=== PATIENT | female | born 1945 | race Caucasian/White ===

== ENCOUNTER 2017-07-20 07:09 | Inpatient (IN) | payer OTHER ==
[2017-07-20] MEDS ORDERED: DEXAMETHASONE SOD PHOSPHATE/PF 10 MG/ML SDV ONE ×2 (07:38→07:56)
[2017-07-20] MEDS ORDERED: VANCOMYCIN 1,000 MG VIAL (RESTRICTED TO ID ONLY) ONE ×2 (07:39→08:08)
[2017-07-20] MEDS ORDERED: ROPIVICAINE 0.2%/MORPH PF/KETOROLAC - 51ML DISP.SYRINGE IA ONE ×3 (07:42→12:00)
[2017-07-20 07:51] VITALS: BMI 26.6
[2017-07-20] MEDS ORDERED: MIDAZOLAM HCL 2 MG/2 ML SINGLE DOSE VIAL ONE ×3 (07:56→08:01)
[2017-07-20] MEDS ORDERED: ROPIVACAINE HCL 0.5% 30ML VIAL ONE (07:57)
[2017-07-20] MEDS ORDERED: PROPOFOL 20 ML ONE ×3 (07:58→10:20)
[2017-07-20] MEDS ORDERED: LIDOCAINE HCL/PF 2% SDV 5ML VIAL ONE ×2 (07:58→10:34)
[2017-07-20] MEDS ORDERED: ONDANSETRON 4 MG/2 ML VIAL ONE ×2 (07:58→10:34)
[2017-07-20] MEDS ORDERED: DEXAMETHASONE SOD PHOSPHATE 4 MG/1 ML VIAL ONE ×2 (07:58→10:34)
[2017-07-20] MEDS ORDERED: TRANEXAMIC ACID 1000 MG/10 ML VIAL ONE ×2 (08:08→09:48)
--- NOTE | 2017-07-20 08:10 | HP ---
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: Alzheimer's, CVA, Dementia, Migraine, Multiple Sclerosis, Peripheral Neuropathy, Parkinson's, Seizure, Syncope, TIA, Vertigo, Other Cardiovascular: Yes: HTN Pulmonary: No: Asthma, Bronchitis, Cancer, COPD, O2 Dependent, Pneumonia, Previously Intubated, Pulmonary Embolus, Pulmonary Fibrosis, Sleep Apnea, Other Gastrointestinal: No: Ascites, Cancer, Constipation, Crohn's Disease, Diverticulitis, Diverticulosis, Esophageal Varices, Gastritis, GERD, GI Bleed, Hemorrhoids, Hiatal Hernia, Inflamatory Bowel Disease, Irritable Bowel Disease, Pancreatitis, Peptic Ulcer Disease, Ulcerative Colitis, Other Hepatobiliary: Yes: Other (hyperlipidemia) Reproductive: No: Ectopic , Endometriosis, Fibroids, PID, Polycystic Ovary Syndrome, Postmenopausal, Other ...: No Heme/Onc: No: Anemia, B12 Deficiency, Bleeding Disorder, Cancer, Current Chemotherapy, Current Radiation Therapy, Hemochromatosis, Hypercoaguable State, Myeloproliferative Synd, Sickle Cell Disease, Sickle Cell Trait, Thrombocytopenia, Other Infectious Disease: No: AIDS, C-Diff, Herpes Zoster, HIV, MRSA, STD's, Tuberculosis, VREF, Other Psych: No: Addictions, Anxiety, Bipolar, Depression, Panic, Psychosis, Schizophrenia, Other Musculoskeletal: Yes: Osteoarthritis (right hip) Rheumatology: No: Fibromyalgia, Gout, Lupus, Rheumatoid Arthritis, Sarcoidosis, Vasculitis, Other Endocrine: No: Arapahoe's Disease, Elicia's Disease, Diabetes Insipidus, Diabetes Mellitus, Hyperparathyroidism, Hyperthyroidism, Hypothyroidism, Osteopenia, SIADH, Other Dermatology: No: Basal Cell, Cellulitis, Eczema, Melanoma, Psoriasis, Squamous Cell, Other - Past Surgical History Past Surgical History: Yes: Cholecystectomy, Tubal Ligation - Advance Directives Advance Directives: Yes: Health Care Proxy - Smoking History Smoking history: Former smoker Have you smoked in the past 12 months: Yes Aproximately how many cigarettes per day: 3 If you are a former smoker, when did you quit?: 1 MONTH AGO - Alcohol/Substance Use Hx Alcohol Use: No - Social History Usual Living Arrangement: Yes: With Spouse Home Medications - Allergies Allergies/Adverse Reactions: Allergies Allergy/AdvReac Type Severity Reaction Status Date / Time No Known Drug Allergies Allergy Verified 07/14/17 13:38 - Home Medications Home Medications: Ambulatory Orders Atorvastatin Ca [Lipitor] 20 mg PO HS 07/14/17 Ferrous Sulfate [Feosol] 325 mg PO DAILY 07/14/17 Losartan Potassium 50 mg PO DAILY 07/14/17 Family Disease History - Family Disease History Family History: Unremarkable Review of Systems - Review of Systems Constitutional: reports: No Symptoms Eyes: reports: No Symptoms HENT: reports: No Symptoms Neck: reports: No Symptoms Cardiovascular: reports: No Symptoms Respiratory: reports: No Symptoms Gastrointestinal: reports: No Symptoms Genitourinary: reports: No Symptoms Breasts: reports: No Symptoms Reported Musculoskeletal: reports: Decreased ROM, Joint Pain Integumentary: reports: No Symptoms Neurological: reports: No Symptoms Hematology/Lymphatic: reports: No Symptoms Psychiatric: reports: No Symptoms Physical Examination Vital Signs: Vital Signs Temperature 97.9 F 07/20/17 07:40 Pulse Rate 72 07/20/17 07:40 Respiratory Rate 17 07/20/17 07:40 Blood Pressure 148/93 07/20/17 07:40 O2 Sat by Pulse Oximetry (%) Constitutional: Yes: Well Nourished Eyes: Yes: Conjunctiva Clear, EOM Intact Neck: Yes: Supple, Trachea Midline Cardiovascular: Yes: S1, S2 Respiratory: Yes: CTA Bilaterally Gastrointestinal: Yes: Soft, Abdomen, Obese ...Rectal Exam: Yes: Deferred Renal/: Yes: Other (n/a) Musculoskeletal: Yes: Joint Stiffness (decreased ROM and pain right hip) Extremities: Yes: Other (b/l LE compartments soft supple and non-tender) Edema: No Peripheral Pulses: Left Doralis Pedis: 2+, Right Dorsalis Pedis: 2+ Integumentary: Yes: WNL Wound/Incision: Yes: Other (N/A) Neurological: Yes: WNL, Alert, Oriented ...Motor Strength: WNL Psychiatric: Yes: WNL, Alert, Oriented Imaging - Results X-ray: Other Problem List - Problems (1) Osteoarthritis Assessment/Plan: Patient with right Hip OA will proceed with JAVIER as discussed in office with Dr Ramírez 1) continue current POC 2) follow up with pcp as directed 6 weeks post op Code(s): M19.90 - UNSPECIFIED OSTEOARTHRITIS, UNSPECIFIED SITE Visit type - Emergency Visit Emergency Visit: No - New Patient This patient is new to me today: Yes Date on this admission: 07/20/17 - Critical Care Critical Care patient: No Hospitalist Screening - Colonoscopy Questionnaire Colonoscopy Questionnaire: Colonoscopy Questionnaire - Patient: 50 - 75 years old and never had a screening colonoscopy: Yes History of colon or rectal polyps, or CA: No History of IBD, Crohn's disease or UC: No History of abdominal radiation therapy as a child: No - Relative: 1 with colon or rectal CA, or polyps at age 60 or younger: Unknown Colon or rectal CA diagnosed at age 45 or younger: Unknown Multiple relatives with colon or rectal CA: Unknown - Outcome: Screening Result: Positive Screen
[2017-07-20] MEDS ORDERED: ONDANSETRON 4 MG/2 ML VIAL IVPUSH PRN ×2 (08:56→12:29)
[2017-07-20] MEDS ORDERED: oxyCODONE HCL 5 MG TABLET PO PRN (08:56)
[2017-07-20] MEDS ORDERED: LACTATED RINGERS SOLUTION 1,000 ML IV SCH ×2 (09:00→12:30)
[2017-07-20] MEDS ORDERED: ACETAMINOPHEN 325 MG TABLET (FP) PO SCH (09:00)
[2017-07-20] MEDS ORDERED: CEFAZOLIN 1 GM/D5W 1 GRAM/50 ML BAG IVPB ONE (10:00)
[2017-07-20] MEDS ORDERED: VANCOMYCIN 1,000 MG in DEXTROSE 5%-WATER - 250 ML IVPB ONE (10:00)
[2017-07-20] MEDS ORDERED: TRANEXAMIC ACID 1000 MG/10 ML VIAL IVPUSH ONE (10:00)
[2017-07-20] MEDS ORDERED: ePHEDrine SULFATE 50 MG/1 ML AMPULE ONE (11:16)
[2017-07-20] MEDS ORDERED: ceFAZolin SODIUM 1 GM VIAL ONE (11:29)
[2017-07-20] MEDS ORDERED: BENZOIN/ALOE VERA/STORAX/TOLU 58 ML BOTTLE ONE (12:03)
[2017-07-20] MEDS ORDERED: MAGNESIUM HYDROX 2400MG/30ML ORAL SUSPENSION 30 ML CUP PO PRN (12:29)
--- NOTE | 2017-07-20 12:42 | PN ---
Progress Note (short form) - Note Progress Note: 71 yo s/p right total hip arthroplasty via direct superior approach POD #0 -Pain control. -DVT PPx: - Mechanical: SCD's, GEORGIANA's. - Chemical: ASA 81mg PO BID x 6 weeks. -Incentive spirometry. -PT/OT/Rehab, OOB. -WBAT RLE. -f/u AM labs. -f/u TOV. -Care per medical hospitalist team. -Discharge planning. -Will follow. Lili Hand surgery [facility]es[facility] Problem List - Problems (1) Osteoarthritis Code(s): M19.90 - UNSPECIFIED OSTEOARTHRITIS, UNSPECIFIED SITE
--- NOTE | 2017-07-20 12:49 | OP ---
Operative Note - Note: Operative Date: 07/20/17 Pre-Operative Diagnosis: Right hip OA Operation: Right JAVIER Post-Operative Diagnosis: Same as Pre-op Surgeon: Favio Ramírez Manager Market Research: Gabriel Ramírez (co surgeon) Anesthesiologist/HOSPICE OFFICE COORDINATOR: Clarence Perez Anesthesia: Spinal, Local Specimens Removed: right femoral head Estimated Blood Loss (mls): 100 Fluid Volume Replaced (mls): 1,500 Operative Report Dictated: Yes
--- NOTE | 2017-07-20 12:50 | SURG ---
Surgery Inspector Dials Note Inspector Dials: Lili Hand PA-C Date of Service: 07/20/17 Diagnosis: right hip OA Procedure: Right JAVIER I was present for the entirety of the operative procedure. For further detail, please refer to operative report. Visit type - Case Type Case Type: Scheduled Admission - Emergency Emergency Visit: No - New patient This patient is new to me today: Yes Date on this admission: 07/20/17
[2017-07-20] MEDS ORDERED: oxyCODONE HCL 5 MG TABLET ONE (13:24)
[2017-07-20] MEDS: oxyCODONE HCL 5 MG TABLET PO PRN ×2 (13:25→19:44)
[2017-07-20] MEDS: oxyCODONE HCL 10 MG SUSTAINED ACTING TABLET PO SCH ×2 (13:39→21:49)
[2017-07-20] MEDS: MAG HYDROX/AL HYDROX/SIMETH 30 ML UNIT-DOSE CUP PO PRN ×2 (15:54→19:45)
[2017-07-20] MEDS: CEFAZOLIN 1 GM/D5W 1 GRAM/50 ML BAG IVPB SCH (19:09)
[2017-07-20] MEDS: ACETAMINOPHEN 325 MG TABLET (FP) PO SCH (19:45)
[2017-07-20] MEDS: ATORVASTATIN CA 20 MG TABLET (FP) PO SCH (21:49)
[2017-07-20] MEDS: ASPIRIN 81 MG CHEWABLE TABLETS PO SCH (21:49)
[2017-07-20] MEDS: SENNOSIDES/DOCUSATE COMBO (SENNA PLUS) TABLET (UD) PO SCH (21:49)
[2017-07-21] MEDS ORDERED: VANCOMYCIN 1 GRAM (PRE-DOCKED) 1,000 MG/250 ML BAG IVPB ONE
[2017-07-21] MEDS: ACETAMINOPHEN 325 MG TABLET (FP) PO SCH ×4 (01:57→20:03)
[2017-07-21] MEDS: CEFAZOLIN 1 GM/D5W 1 GRAM/50 ML BAG IVPB SCH (02:49)
[2017-07-21 08:53] LABS: ANION GAP 7 (8-16); BLOOD UREA NITROGEN 15 mg/dl (7-18); CALCIUM 8.8 mg/dl (8.4-10.2); CHLORIDE 103 mmol/L (98-107); CO2 25 mmol/L (22-28); CREATININE 0.7 mg/dl (0.6-1.3); GLUCOSE,RANDOM 151 mg/dl (74-106); HEMATOCRIT 33.3 % (32.4-45.2); HEMOGLOBIN 11.2 GM/dl (10.7-15.3); MCH 28.3 pg (25.7-33.7); MCHC 33.5 g/dl (32.0-36.0); MEAN CELL VOLUME 84.3 fl (80-96); MEAN PLT VOLUME 8.7 fl (7.5-11.1); PLATELET COUNT 225 K/MM3 (134-434); POTASSIUM 4.1 mmol/L (3.5-5.1); RBC 3.95 M/mm3 (3.60-5.2); RDW 12.9 % (11.6-15.6); SODIUM 135 mmol/L (136-145); WHITE BLOOD COUNT 19.6 K/mm3 (4.0-10.8)
[2017-07-21] MEDS: FERROUS SO4 325 MG TABLET (FP) PO SCH (10:18)
[2017-07-21] MEDS: ASPIRIN 81 MG CHEWABLE TABLETS PO SCH ×2 (10:18→21:41)
[2017-07-21] MEDS: LOSARTAN POTASSIUM 50 MG TABLET (FP) PO SCH (10:19)
[2017-07-21] MEDS: SENNOSIDES/DOCUSATE COMBO (SENNA PLUS) TABLET (UD) PO SCH ×2 (10:19→21:41)
[2017-07-21] MEDS: oxyCODONE HCL 10 MG SUSTAINED ACTING TABLET PO SCH ×2 (10:19→21:42)
[2017-07-21] MEDS: PANTOPRAZOLE 40 MG TABLET (FP) PO SCH (10:23)
--- NOTE | 2017-07-21 12:38 | PN ---
Progress Note (short form) - Note Progress Note: 71F POD1 s/p R THR under spinal anesthetic with peripheral nerve blocks for post operative pain relief. Pt states that pain is well controlled and reports no anesthetic complications. AVSS. Sensory and motor function intact in bilateral lower extremities. Continue current regimen.
--- NOTE | 2017-07-21 16:48 | CONSULT ---
Consultation: REQUESTING PROVIDER: Dr Ramírez CONSULT REQUEST: We have been asked to medically evaluate this patient for medical management. HISTORY OF PRESENT ILLNESS: Patient is a 71 y/o female with a past medical history of osteomyelitis, hypertension, and hyperlipidemia, patient was admitted for an elective right total hip replacment, POD #1, Dr Ramírez REVIEW OF SYSTEMS: CONSTITUTIONAL: Absent: fever, chills, diaphoresis, generalized weakness, malaise, loss of appetite, weight change HEENT: Absent: rhinorrhea, nasal congestion, throat pain, throat swelling, difficulty swallowing, mouth swelling, ear pain, eye pain, visual changes CARDIOVASCULAR: Absent: chest pain, syncope, palpitations, irregular heart rate, lightheadedness , peripheral edema RESPIRATORY: Absent: cough, shortness of breath, dyspnea with exertion, orthopnea, wheezing, stridor, hemoptysis GASTROINTESTINAL: Absent: abdominal pain, abdominal distension, nausea, vomiting, diarrhea, constipation, melena, hematochezia GENITOURINARY: Absent: dysuria, frequency, urgency, hesitancy, hematuria, flank pain, genital pain MUSCULOSKELETAL: Present: right hip pain Absent: myalgia, arthralgia, joint swelling, back pain, neck pain SKIN: Absent: rash, itching, pallor HEMATOLOGIC/IMMUNOLOGIC: Absent: easy bleeding, easy bruising, lymphadenopathy, frequent infections ENDOCRINE: Absent: unexplained weight gain, unexplained weight loss, heat intolerance, cold intolerance NEUROLOGIC: Absent: headache, focal weakness or paresthesias, dizziness, unsteady gait, seizure, mental status changes, bladder or bowel incontinence PSYCHIATRIC: Absent: anxiety, depression, suicidal or homicidal ideation, hallucinations. PHYSICAL EXAMINATION Vital Signs - 24 hr 07/20/17 07/20/17 07/20/17 16:53 19:51 21:00 Temperature 98.3 F 97.9 F Pulse Rate 100 H 107 H Respiratory 16 16 16 Rate Blood Pressure 131/78 130/69 O2 Sat by Pulse 95 95 98 Oximetry (%) 07/21/17 07/21/17 06:36 14:00 Temperature 97.5 F L 98.2 F Pulse Rate 92 H 73 Respiratory 18 18 Rate Blood Pressure 124/63 90/59 O2 Sat by Pulse 96 94 L Oximetry (%) GENERAL: Awake, alert, and fully oriented, in no acute distress. HEAD: Normal with no signs of trauma. EYES: Pupils equal, round and reactive to light, extraocular movements intact, sclera anicteric, conjunctiva clear. No lid lag. EARS, NOSE, THROAT: Ears normal, nares patent, oropharynx clear without exudates. Moist mucous membranes. NECK: Normal range of motion, supple without lymphadenopathy, JVD, or masses. LUNGS: Breath sounds equal, clear to auscultation bilaterally. No wheezes, and no crackles. No accessory muscle use. HEART: Regular rate and rhythm, normal S1 and S2 without murmur, rub or gallop. ABDOMEN: Soft, nontender, not distended, normoactive bowel sounds, no guarding, no rebound, no masses. No hepatomegaly or splenomegaly. MUSCULOSKELETAL: Normal range of motion at all joints. No bony deformities or tenderness. No CVA tenderness. UPPER EXTREMITIES: 2+ pulses, warm, well-perfused. No cyanosis. No clubbing. Cap refill <2 seconds. No peripheral edema. LOWER EXTREMITIES: 2+ pulses, warm, well-perfused. No calf tenderness. No peripheral edema. RIGHT LOWER EXTREMITY: dressing, cdi, less than 3 second capillary refill, + pedal pulse, scd/aleja NEUROLOGICAL: Cranial nerves II-XII intact. Normal speech. Normal gait. PSYCHIATRIC: Cooperative. Good eye contact. Appropriate mood and affect. SKIN: Warm, dry, normal turgor, no rashes or lesions noted. Laboratory Results - last 24 hr 07/21/17 07/21/17 07:15 07:15 WBC 19.6 H RBC 3.95 Hgb 11.2 Hct 33.3 MCV 84.3 MCH 28.3 MCHC 33.5 RDW 12.9 Plt Count 225 MPV 8.7 Sodium 135 L Potassium 4.1 Chloride 103 Carbon Dioxide 25 Anion Gap 7 L BUN 15 Creatinine 0.7 Random Glucose 151 H Calcium 8.8 Active Medications Generic Name Dose Route Start Last Admin Trade Name Freq PRN Reason Stop Dose Admin Acetaminophen 650 mg 07/20/17 20:00 07/21/17 14:12 Tylenol - PO 07/23/17 08:59 Not Given Q6H DINA Al Hydroxide/Mg Hydroxide 30 ml 07/20/17 12:29 07/20/17 19:45 Mylanta Oral Suspension - PO 30 ml Q4H PRN Administration DYSPEPSIA Aspirin 81 mg 07/20/17 22:00 07/21/17 10:18 Asa - PO 81 mg BID DINA Administration Atorvastatin Calcium 20 mg 07/20/17 22:00 07/20/17 21:49 Lipitor - PO 20 mg HS DINA Administration Fentanyl 25 mcg 07/20/17 08:56 Sublimaze Injection - IVPUSH [id number] PRN PAIN-PACU ORDER X 4 DOSES ONLY Ferrous Sulfate 325 mg 07/21/17 10:00 07/21/17 10:18 Feosol - PO 325 mg DAILY DINA Administration Losartan Potassium 50 mg 07/21/17 10:00 07/21/17 10:19 Cozaar - PO 50 mg DAILY DINA Administration Magnesium Hydroxide 30 ml 07/20/17 12:29 Milk Of Magnesia - PO PRN PRN CONSTIPATION Ondansetron HCl 4 mg 07/20/17 12:29 Zofran Injection IVPUSH Q6H PRN NAUSEA Oxycodone HCl 10 mg 07/20/17 08:56 07/20/17 20:11 Roxicodone - PO 10 mg Q4H PRN Administration PAIN LEVEL 6-10 Oxycodone HCl 5 mg 07/20/17 08:56 07/20/17 13:25 Roxicodone - PO 5 mg Q4H PRN Administration PAIN LEVEL 1-5 Oxycodone HCl 10 mg 07/20/17 10:00 07/21/17 10:19 Oxycontin - PO 07/23/17 08:57 10 mg BID DINA Administration Pantoprazole Sodium 40 mg 07/21/17 10:00 07/21/17 10:23 Protonix - PO Not Given DAILY [facility] Senna/Docusate Sodium 2 tablet 07/20/17 22:00 07/21/17 10:19 Pericolace - PO 2 tablet BID DINA Administration ASSESSMENT/PLAN: 1) MS s/p right total hip replacement - hgb 11.2 stable, leukocytosis noted, most likely reactive, patient is afebrile , strict monitoring - physical therapy as per the orthopedist - prn pain medication 2) cardiovascular hypertension - b/p at goal continue coozar f/e/n -low sodium diet - replete lytes prn ppx - oob - asa - scd - protonix Dispo: We will continue to follow the patient. Thank you for this consultative opportunity. Visit type - Emergency Visit Emergency Visit: Yes ED Registration Date: 07/20/17 Care time: The patient presented to the Emergency Department on the above date and was hospitalized for further evaluation of their emergent condition. - New Patient This patient is new to me today: No - Critical Care Critical Care patient: No
[2017-07-21] MEDS: ATORVASTATIN CA 20 MG TABLET (FP) PO SCH (21:42)
[2017-07-21 22:15] VITALS: PULSE 86
--- NOTE | 2017-07-21 23:38 | PN ---
Progress Note (short form) - Note Progress Note: 71F doing well s/p R JAVIER via direct superior approach POD #1. Pain well controlled. No acute events overnight. (+) Epigastric discomfort. Pt. denies overnight history of chest pain, shortness of breath, nausea, vomiting, chills, & sweats. (+) Voiding; (+) Flatus; (-) BM. All labs and vitals reviewed. PE: AAO x 3, NAD. R Hip: Dressing C/D/I. NVI distally. A/P: 71F doing well s/p R JAVIER via direct superior approach POD #1. -Pain control. -DVT PPx: - Mechanical: SCD's, GEORGIANA's. - Chemical: ASA 81mg PO BID x 6 weeks. -Incentive spirometry. -PT/OT/Rehab, OOB. -WBAT RLE. -f/u AM labs. -Care per medical hospitalist team. -Discharge planning. -Will follow. Favio Ramírez MD (Orthopaedic Surgery).
[2017-07-22] MEDS: ACETAMINOPHEN 325 MG TABLET (FP) PO SCH ×3 (02:13→13:07)
[2017-07-22 06:24] VITALS: BP 115/65; TEMP 98.2
[2017-07-22] MEDS: oxyCODONE HCL 5 MG TABLET PO PRN (09:08)
[2017-07-22 09:33] LABS: HEMATOCRIT 34.3 % (32.4-45.2); HEMOGLOBIN 11.5 GM/dl (10.7-15.3); MCH 28.2 pg (25.7-33.7); MCHC 33.6 g/dl (32.0-36.0); MEAN CELL VOLUME 84.1 fl (80-96); MEAN PLT VOLUME 8.8 fl (7.5-11.1); PLATELET COUNT 245 K/MM3 (134-434); RBC 4.09 M/mm3 (3.60-5.2); RDW 13.2 % (11.6-15.6); WHITE BLOOD COUNT 13.1 K/mm3 (4.0-10.8)
[2017-07-22 09:34] LABS: ANION GAP 4 (8-16); BLOOD UREA NITROGEN 15 mg/dl (7-18); CALCIUM 8.7 mg/dl (8.4-10.2); CHLORIDE 103 mmol/L (98-107); CO2 29 mmol/L (22-28); GLUCOSE,RANDOM 85 mg/dl (74-106); MAGNESIUM 2.1 mg/dL (1.8-2.4); POTASSIUM 3.9 mmol/L (3.5-5.1); SODIUM 136 mmol/L (136-145)
[2017-07-22 09:41] LABS: CREATININE 0.8 mg/dl (0.6-1.3)
[2017-07-22] MEDS: PANTOPRAZOLE 40 MG TABLET (FP) PO SCH (09:41)
[2017-07-22] MEDS: FERROUS SO4 325 MG TABLET (FP) PO SCH (09:41)
[2017-07-22] MEDS: LOSARTAN POTASSIUM 50 MG TABLET (FP) PO SCH (09:41)
[2017-07-22] MEDS: oxyCODONE HCL 10 MG SUSTAINED ACTING TABLET PO SCH (09:41)
[2017-07-22] MEDS: SENNOSIDES/DOCUSATE COMBO (SENNA PLUS) TABLET (UD) PO SCH (09:41)
[2017-07-22] MEDS: ASPIRIN 81 MG CHEWABLE TABLETS PO SCH (09:41)
[2017-07-22 11:53] LABS: PLATELET ESTIMATE ADEQUATE
--- NOTE | 2017-07-22 12:39 | DS ---
Physical Exam: SUBJECTIVE: Patient seen and examined, patient reports feeling well ambulatory throughout nursing station, reports miminal pain to the right lower extremity, patient denies any paresthesia to the extremity. OBJECTIVE:Patient is a 71 y/o female with a past medical history of osteomyelitis, hypertension, and hyperlipidemia, patient was admitted for an elective right total hip replacment. Vital Signs Temperature 98.2 F 07/22/17 06:00 Pulse Rate 86 07/22/17 06:00 Respiratory Rate 20 07/22/17 06:00 Blood Pressure 115/65 07/22/17 06:00 O2 Sat by Pulse Oximetry (%) 94 L 07/22/17 06:00 PHYSICAL EXAM GENERAL: The patient is awake, alert, and fully oriented, in no acute distress. HEAD: Normal with no signs of trauma. EYES: PERRL, extraocular movements intact, sclera anicteric, conjunctiva clear. ENT: Ears normal, nares patent, oropharynx clear without exudates, moist mucous membranes. NECK: Trachea midline, full range of motion, supple. LUNGS: Breath sounds equal, clear to auscultation bilaterally, no wheezes, no crackles, no accessory muscle use. HEART: Regular rate and rhythm, S1, S2 without murmur, rub or gallop. ABDOMEN: Soft, nontender, nondistended, normoactive bowel sounds, no guarding, no rebound, no hepatosplenomegaly, no masses. EXTREMITIES: 2+ pulses, warm, well-perfused, no edema. RIGHT LOWER EXTREMITY: dressing intact, less than 3 second cappillary refill, scd/aleja NEUROLOGICAL: Cranial nerves II through XII grossly intact. Normal speech, gait not observed. PSYCH: Normal mood, normal affect. SKIN: Warm, dry, normal turgor, no rashes or lesions noted. LABS CBC,CMP WBC 13.1 K/mm3 (4.0-10.8) H D 07/22/17 07:13 RBC 4.09 M/mm3 (3.60-5.2) 07/22/17 07:13 Hgb 11.5 GM/dl (10.7-15.3) 07/22/17 07:13 Hct 34.3 % (32.4-45.2) 07/22/17 07:13 MCV 84.1 fl (80-96) 07/22/17 07:13 MCH 28.2 pg (25.7-33.7) 07/22/17 07:13 MCHC 33.6 g/dl (32.0-36.0) 07/22/17 07:13 RDW 13.2 % (11.6-15.6) 07/22/17 07:13 Plt Count 245 K/MM3 (134-434) 07/22/17 07:13 MPV 8.8 fl (7.5-11.1) 07/22/17 07:13 Neutrophils % No Result Required. 07/22/17 07:13 Neutrophils % (Manual) 77.0 % (42.8-82.8) 07/22/17 07:13 Band Neutrophils % 2.0 % (0-10) 07/22/17 07:13 Lymphocytes % No Result Required. 07/22/17 07:13 Lymphocytes % (Manual) 14.0 % (8-40) 07/22/17 07:13 Monocytes % (Manual) 5 % (3.8-10.2) 07/22/17 07:13 Platelet Estimate Adequate 07/22/17 07:13 Sodium 136 mmol/L (136-145) 07/22/17 07:13 Potassium 3.9 mmol/L (3.5-5.1) 07/22/17 07:13 Chloride 103 mmol/L (98-107) 07/22/17 07:13 Carbon Dioxide 29 mmol/L (22-28) H 07/22/17 07:13 Anion Gap 4 (8-16) L 07/22/17 07:13 BUN 15 mg/dl (7-18) 07/22/17 07:13 Creatinine 0.8 mg/dl (0.6-1.3) 07/22/17 07:13 Random Glucose 85 mg/dl (74-106) D 07/22/17 07:13 Calcium 8.7 mg/dl (8.4-10.2) 07/22/17 07:13 Magnesium 2.1 mg/dL (1.8-2.4) 07/22/17 07:13 HOSPITAL COURSE: The patient was admitted to the Med-Surg Unit after an elective right total hip replacement, Dr Ramírez. On post op day 1, the patient ambulated the hallways with assistance. Narcotic and non-narcotic pain management control was achieved with an oral and IV approach. Teresita-operative IV ABX were administered. DVT prophylaxis was achieved with SCDs and early ambulation. The patient ambulated with Physical Therapy and no services were recommended upon discharge. Narcotic scripts were checked with [place] [employer] prior to escibe. The discharge instructions and an oral pain management plan were reviewed with the patient. All questions answered. Above plan discussed with Dr. Ramírez and agreed. Date of Admission:07/20/17 Date of Discharge: 07/22/17 Minutes to complete discharge: 45 Visit type - Case Type Case Type: Scheduled Admission - Emergency Emergency Visit: No - New patient This patient is new to me today: No - Critical Care Critical Care patient: No
--- NOTE | 2017-07-22 15:45 | PATH ---
Surgical Pathology Report Patient Name: ELVIS LÓPEZ Med. Rec. #: [id number] /Age/Gender: 1945 (Age: 71) / F Account: [id number] Location: [facility] MED-SURG Taken: 07/20/2017 Received: 07/20/2017 Reported: 07/22/2017 Physicians: Favio Ramírez M.D. Specimen(s) Received RIGHT FEMORAL HEAD Clinical History Osteoarthritis right hip Final Diagnosis BONE, RIGHT FEMORAL HEAD, REPLACEMENT: DEGENERATIVE JOINT DISEASE. Electronically Signed Fredrick Acuna M.D. Gross Description Received in formalin, labeled "right femoral head," is a 3.7 x 3.7 x 3.6 cm. femoral head with a 1.1 cm in length portion of femoral neck attached. The margin of resection is smooth. There is a 2.0 cm in greatest dimension area of eburnation present. The remaining articular surface is bryant-yellow and diffusely granular. The underlying trabecular bone is yellow and hard. A outreach representative section is submitted in one cassette, following decalcification. 07/21/2017 [facility]07/21/2017
--- NOTE | 2017-07-25 00:50 | OP ---
Date of Operation: 07/20/2017 Surgeon: Favio Ramírez MD Co-Surgeon: Gabriel Ramírez MD Business Operations Manager: Lili Hand PA-C Pre-Operative Diagnosis: Right hip DJD Post-Operative Diagnosis: Same. Surgical Procedure: Right total hip replacement. Anaesthesia: Spinal, sedation. Position: Left lateral decubitus. Incision: Direct superior. Estimated Blood Loss: 100cc. Intravenous Fluid: 1.3L crystalloid. Specimens: Right femoral head. Drains: None. Complications: None. Urine output: None. Bacteriology: None. Transfusions: None. Closure: #1, 2-0 Vicryl; 3-0 Biosyn. Indications: The patient was indicated for a right total hip replacement in order to facilitate improved motion and mobilization, and to prevent the complications associated with a sedentary lifestyle. The patient was identified in the holding area by her armband. A long discussion was held with the patient in the presence of patients relative regarding the risks, benefits and alternatives of the above named procedure. Risks include but are not limited to: pain, bleeding, infection, damage to surrounding structures (including nerves, blood vessels, skin, ligaments, tendons and bone), wound complications, failure of hardware/implants/reduction, need for further surgery, blood clots, myocardial infarction, pulmonary embolism , cerebrovascular insult, anaesthesia complications, compartment syndrome, limb loss, limp, loss of function, and . Benefits as mentioned above. Alternatives include no surgery. All questions were answered. The patient understood and agreed to the procedure. Informed consent was obtained, witnessed and verified. The patients correct operative limb that is the right lower extremity was marked, and the patient was taken to the operating room after being seen by the anesthesia and nursing staff. Procedure: The patient was brought into the operating room, placed on the OR table and secured with a safety strap. Consent and the operative site were again verified with the patient and nursing and anaesthesia staff. Anaesthesia, IV antibiotics, and TXA were then administered without complication. A time out was done, led by me the attending surgeon. The patient was gently turned into the left lateral decubitus position. An axillary roll was placed. A Stulberg hip positioner with well-padded bolsters was used to secure the patient in the lateral decubitus position. The down arm was placed on a well-padded arm board. The up arm was brought across the patients body and placed on 2 pillows. Egg crates were placed under the down knee and ankle, and bony prominences were well padded. The operative site was then prepped and draped in the standard sterile fashion. Time out was again done and the case began. Operation: A standard Direct Superior surgical approach was utilized to access the hip joint. With a #10 blade, a skin incision was taken from the posterior-superior corner of the greater trochanter in a posterior-superior direction. This was approximately 10cm in length. Electrocautery was utilized to carry the deep dissection down to the level of the gluteus susi fascia. Hemostasis was assured using electrocautery (bipolar and unipolar). The gluteus susi fascia was incised, and the fibers of gluteus susi were in line with the trajectory of the incision. This confirmed the accuracy of our planned incision based on palpated landmarks and surface anatomy. A Appiah elevator was used to split the distal fibers of gluteus susi, in line with the fibers, just proximal to their insertion into the iliotibial band. Great care was taken not to incise the iliotibial band. Gluteus susi fibers were split proximally using the Appiah elevator until reaching the apex of the wound. Again, hemostasis was assured. The kosta-capsular fat pad was exposed utilizing curved handle bar retractors. The kosta-capsular fat pad was excised off the inferior border of the gluteus medius muscle belly, exposing the insertion of the hip short external rotator muscle group. The piriformis tendon was identified and freed from adhesions to the capsule using a 90-degree clamp. This tendon was then released from its insertion using electrocautery. The tendon was tagged with a # 1 Ethibond suture and tied to the inferior aspect of the proximal wound apex. The tendon, thus, served as a sling to retract and protect the sciatic nerve. With the piriformis tendon reflected away from its insertion, the hip joint capsule was visualized. Electrocautery was used to perform a capsulotomy and synovial joint fluid was aspirated. Next, the superior leaflet of the capsule was elevated using a Appiah elevator to create separation from the underlying labrum and also to create a plane for later placement of a supra-acetabular retractor. The labrum was excised using electrocautery. The hip was then gently dislocated. A standard femoral neck cut was made using an oscillating saw. A 3/4 " osteotome was delivered into the femoral head using mallet strikes. The femoral head was then removed. Anterior, inferior, and supra-acetabular retractors were placed to expose the acetabulum. The pulvinar was excised using electrocautery. Odd sized reamers were used to prepare the acetabular bone bed. Healthy blushes of bleeding were observed from the reamed cancellous bone bed. Next, a size 50mm Chetna Trident cup was impacted into position with excellent press-fit.. A size 36mm neutral polyethylene liner was then impacted into the cup. Excellent placement of the polyethylene liner was confirmed. Next, attention was turned to femoral preparation. The anterior and supra-acetabular retractors were removed. The cut femoral neck was then exposed using the inferior acetabular retractor around the calcar, and a straight 90-degree retractor to retract gluteus medius. The box-cutter osteotome was used with a mallet to removed bone from the lateral femoral neck. An opening reamer was delivered by hand to find the femoral canal. A lateralizing reamer was used with power to lateralize the proximal entry into the canal, so as to avoid placing the stem into varus. The femoral bone bed was then prepared using broaches with gentle mallet strikes. The tibia was used as a goniometer with which to dial in approximately 5 degrees of stem anteversion. Trial components were assembled and the hip was reduced. The hip was taken through a full range of motion and proved stable throughout this range of motion, including at the extremes of positions of compromised. All trial femoral components were removed. Another 1g of IV Ancef was administered so that the bone bed would be rich with antibiotic at the time of seating of the femoral implant. A Chetna Accolade II #2 stem (127 degree, high offset) was then implanted using gentle mallet strikes, diligently matching the prepared degree of stem anteversion. With the stem fully seated, a 36mm diameter, -2.5mm length ceramic/Biolox femoral head was then selected and implanted. The hip was once again reduced, and taken through a full range of motion. Stability was once again assured. Leg length was satisfactory. The wounds were copiously irrigated, as they had been regularly throughout the case so as to keep the retracted tissues wet, and in order to flush out wound debris. The capsule was primarily repaired using #1 Vicryl sutures in simple interrupted fashion. The tagged piriformis tendon was released and tied to the posterior-lateral corner of the greater trochanter. The remaining wounds were again irrigated. Hemostasis was assured and the wound was closed primarily using #1 and 2-0 Vicryl sutures. A 3-0 Biosyn suture was used to perform a subcuticular wound closure. A sterile, compressive dressing was applied. The sponge and needle counts were correct at the end of the case and the attending was present and scrubbed throughout the case. The patient was then transferred into a supine position and onto the hospital bed. A standard AP-pelvis x-ray was taken, demonstrating good overall alignment with a well reduced hip. There was no evidence of subsidence, loosening, or kosta -prosthetic fracture. The patient was then was then transferred to the recovery room without incident/complications and in stable condition, having tolerated the procedure well. MD LAITH Ayala/[id number] MTDD
== END 2017-07-22 13:50 | disposition home health service (06) | DRG 470 ==
LOC: FM/S 07:09
PROVIDERS: ADMIT Orthopaedic Surgery Adult Reconstructive Orthopaedic Surgery; ATTEND Orthopaedic Surgery Adult Reconstructive Orthopaedic Surgery
PROC: 0SR90JZ Replacement of Right Hip Joint with Synthetic Substitute, Open Approach (ICD-10-PCS; principal; 2017-07-20 10:27)
DX: M16.11 Unilateral primary osteoarthritis, right hip (principal); I10 Essential (primary) hypertension; E78.5 Hyperlipidemia, unspecified
CPT/HCPCS: 36415; 73502-TC-RT; 80048; 83735; 85025; 85027; 88304-TC; 88311-TC; 94010; 94760; 97116-GP; 97162-GP